=== PATIENT | male | born 1955 | race Caucasian/White ===

== ENCOUNTER 2022-05-21 20:12 | Emergency (ER) | payer MEDICARE, OTHER ==
[~2022-05-21 20:12] MED LIST: ALLOPURINOL100 MG PO; BAYER CHEWABLE81 MG PO; COLCRYS0.6 MG PO; ELIQUIS5 MG PO; HYDROCHLOROTH12.5 MG PO; IMDUR ER TAB 6060 MG PO; LOSARTAN POTAS100 MG PO; NORVASC10 MG PO; OMEPRAZOLE20 M1 PO; PRAVASTATIN SOD80 MG PO; TOPROL XL 50 MG50 MG PO; VITAMIN D210 MCG PO
== END 2022-05-21 23:41 | disposition home or self-care (01) ==
LOC: ER1 20:12
DX: S01.511A Laceration without foreign body of lip, initial encounter (principal); I48.91 Unspecified atrial fibrillation; I10 Essential (primary) hypertension; Z88.5 Allergy status to narcotic agent; Y04.2XXA Assault by strike against or bumped into by another person, initial encounter
CPT/HCPCS: 12011; 70450; 70486; 72125; 99283